=== PATIENT | female | born 1980 | race Caucasian/White ===

== ENCOUNTER 2019-02-03 12:39 | Emergency (ER) | payer SELFPAY ==
[~2019-02-03] VITALS: Ht 165.1 cm; Wt 80.7 kg
[2019-02-03 12:56] VITALS: BP 151/68
--- NOTE | 2019-02-03 13:03 | NUR ---
PT AMBULATED TO ED BED 06
--- NOTE | 2019-02-03 13:25 | NUR ---
INFLUENZA SWAB PERFORMED, SENT TO LAB.
--- NOTE | 2019-02-03 13:26 | NUR ---
38 Y/O F C/O NASAL CONGESTION FOR 3 MONTHS. PT STATES THE CONGESTION IS CONSTANT. SHE DENIES FEVER/CHILLS/N/V. PT STATES SHE TAKES OVER THE COUNTER ZYRTEC AT HOME. PT POSITIONED FOR COMFORT, BED LOWERED, X1 SIDE RAIL IN PLACE. NKA MEDHX: ANXIETY
--- NOTE | 2019-02-03 13:43 | NUR ---
DR. FLORES AT BEDSIDE EVALUATING PATIENT.
[2019-02-03 14:06] VITALS: BP 151/68
--- NOTE | 2019-02-03 14:06 | NUR ---
Patient discharged with v/s stable. Written and verbal after care instructions given and explained. Patient alert, oriented and verbalized understanding of instructions. Ambulatory with steady gait. All questions addressed prior to discharge. ID band removed. Patient advised to follow up with PMD. Rx of SUDAFED, AUGMENTIN, OXYMETAZOLINE NASAL given. Patient educated on indication of medication including possible reaction and side effects. Opportunity to ask questions provided and answered.
== END 2019-02-03 14:06 | disposition home or self-care (01) ==
LOC: MED 12:39
DX: J32.9 Chronic sinusitis, unspecified (principal)
CPT/HCPCS: 87804; 99283

== ENCOUNTER 2019-03-13 13:50 | Emergency (ER) | payer MEDICAID ==
[~2019-03-13] VITALS: Ht 12.7 cm; Wt 2.3 kg
[2019-03-13 13:52] VITALS: BP 136/85
--- NOTE | 2019-03-13 14:16 | NUR ---
38 YO FEMALE CO HEADACHE AND STUFFY NOSE FOR 4 MONTHS. HEADACHE IS 8/10. NO MED HX. NO ALLERGIES. NO ONE AT HOME SICK AT THIS TIME.
[2019-03-13 15:02] VITALS: BP 136/85
--- NOTE | 2019-03-13 15:04 | NUR ---
Patient discharged with v/s stable. Written and verbal after care instructions given and explained. Patient alert, oriented and verbalized understanding of instructions. Ambulatory with steady gait. All questions addressed prior to discharge. ID band removed. Patient advised to follow up with PMD. Rx of FLONASE, IBUPROFEN, DOXYCYCLINE given. Patient educated on indication of medication including possible reaction and side effects. Opportunity to ask questions provided and answered.
== END 2019-03-13 15:04 | disposition home or self-care (01) ==
LOC: MED 13:50
DX: J32.9 Chronic sinusitis, unspecified (principal)
CPT/HCPCS: 99283

== ENCOUNTER 2019-08-26 16:28 | Emergency (ER) | payer SELFPAY ==
[~2019-08-26] VITALS: Ht 165.1 cm; Wt 87.5 kg
[2019-08-26 16:34] VITALS: BP 143/79
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
[2019-08-26] MEDS ORDERED: NACL 0.9% 1,000 ML IV ONE (17:20)
--- NOTE | 2019-08-26 17:45 | NUR ---
LAB AT BEDSIDE
--- NOTE | 2019-08-26 17:55 | NUR ---
Altagracia lyle in [facility] - 08/26/19 at 1756 by NATAN VISUAL ACUITY: [id number]- [id number]- [id number]
[2019-08-26 17:57] LABS: BASOPHILS # (AUTO) 0.1 K/uL (0.00-0.22); BASOPHILS % (AUTO) 0.7 % (0.0-2.0); EOSINOPHILS # (AUTO) 0.2 K/uL (0-0.4); EOSINOPHILS % (AUTO) 2.7 % (0.0-4.0); HEMOGLOBIN 13.2 g/dL (12.0-16.0); LYMPHOCYTES % (AUTO) 26.1 % (20.5-51.1); MEAN CORPUSCULAR HEMOGLOBIN 27 pg (27-31); MEAN CORPUSCULAR HGB CONC 32 g/dL (33-37); MEAN CORPUSCULAR VOLUME 82.5 fL (80-94); MONOCYTES # (AUTO) 0.6 K/uL (0.8-1.0); MONOCYTES % (AUTO) 7.2 % (1.7-9.3); NEUTROPHILS # (AUTO) 4.9 K/uL (1.8-7.7); NEUTROPHILS % (AUTO) 63.3 % (42.2-75.2); PLATELET COUNT (AUTO) 364 K/uL (140-450); RED BLOOD CELL COUNT(AUTO) 4.97 MIL/uL (4.20-5.40); RED CELL DISTRIBUTION WIDTH 13.7 % (11.6-13.7); WHITE BLOOD COUNT (AUTO) 7.8 K/uL (4.8-10.8)
--- NOTE | 2019-08-26 18:02 | NUR ---
PT AMBULATED TO BATHROOM STEADY GAIT.
[2019-08-26 18:10] LABS: ALBUMIN 4.1 g/dL (3.4-5.0); ANION GAP 14.7 (8-16); CREATININE 0.8 mg/dL (0.6-1.3); POTASSIUM 3.7 mmol/L (3.5-5.1); PROTHROMBIN TIME 10.5 secs (10.8-13.4); TOTAL BILIRUBIN 0.5 mg/dL (0.0-1.0)
[2019-08-26 19:11] LABS: BARBITURATE, URINE NEGATIVE ng/ml (NEG <=200)
[2019-08-26 19:12] LABS: BENZODIAZEPINE, URINE NEGATIVE ng/mL (NEG <=200); CANNABINOID, URINE POSITIVE ng/mL (NEG <=50); COCAINE, URINE POSITIVE ng/mL (NEG <=300); OPIATE, URINE NEGATIVE ng/mL (NEG <=2000); PHENCYCLIDINE SCREEN,URINE NEGATIVE ng/mL (NEG <=25)
--- NOTE | 2019-08-26 19:20 | NUR ---
REPORT RECIEVED FROM MIGUE HOLCOMB. TRANSFER OF CARE AT THIS TIME.
--- NOTE | 2019-08-26 20:00 | NUR ---
PT RESTING COMFORTABLY IN BED. EQUAL CHEST RISE NAND FALL. SAFTEY MEASURES IMPLEMENTED. RELAXATION TECHNIQUES TAUGHT.
[2019-08-26 20:45] VITALS: BP 151/82
== END 2019-08-26 20:45 | disposition home or self-care (01) ==
LOC: MED 16:28
DX: R00.2 Palpitations (principal); F19.10 Other psychoactive substance abuse, uncomplicated; F15.10 Other stimulant abuse, uncomplicated; F41.9 Anxiety disorder, unspecified; F12.90 Cannabis use, unspecified, uncomplicated; R06.02 Shortness of breath; R03.0 Elevated blood-pressure reading, without diagnosis of hypertension
CPT/HCPCS: 36415; 71045; 80053; 80305; 81002; 81025; 84484; 85025; 85379; 85610; 85730; 93005; 99285; Q0092; J7030

== ENCOUNTER 2019-12-15 09:31 | Emergency (ER) | payer SELFPAY ==
[~2019-12-15] VITALS: Ht 165.1 cm; Wt 90.3 kg
[2019-12-15 09:36] VITALS: BP 140/92
[2019-12-15 10:01] VITALS: BP 140/92
== END 2019-12-15 09:57 | disposition home or self-care (01) ==
LOC: MED 09:31
DX: N39.0 Urinary tract infection, site not specified (principal); J32.9 Chronic sinusitis, unspecified; Z98.890 Other specified postprocedural states
CPT/HCPCS: 81002; 81025; 99283

== ENCOUNTER 2020-09-24 08:29 | Emergency (ER) | payer SELFPAY ==
--- NOTE | 2020-09-24 09:40 | NUR ---
PATIENT LEFT WITHOUT BEING TRIAGED. NO FURTHER CARE PROVIDED FOR PATIENT.
== END 2020-09-24 09:40 | disposition left against medical advice (07) ==
LOC: MED 08:29
DX: F41.9 Anxiety disorder, unspecified (principal); Z53.21 Procedure and treatment not carried out due to patient leaving prior to being seen by health care provider

== ENCOUNTER 2021-04-28 03:53 | Emergency (ER) | payer SELFPAY ==
[~2021-04-28] VITALS: Ht 165.1 cm; Wt 95.3 kg
[2021-04-28 03:53] VITALS: BP 131/71
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
--- NOTE | 2021-04-28 03:55 | NUR ---
BIBA TAKEN TO BED #2
[2021-04-28] MEDS ORDERED: KETOROLAC 60 MG/2 ML VIAL IM ONE (04:45)
[2021-04-28] MEDS ORDERED: ACET-8386 PO (05:18)
[2021-04-28 06:35] VITALS: BP 131/71
--- NOTE | 2021-04-28 06:37 | NUR ---
Patient discharged with v/s stable. Written and verbal after care instructions given and explained. Patient alert, oriented and verbalized understanding of instructions. Ambulatory with steady gait. All questions addressed prior to discharge. ID band removed. Patient advised to follow up with PMD. Rx of Hydrocodone/Acetaminophen given. Patient educated on indication of medication including possible reaction and side effects. Opportunity to ask questions provided and answered. 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
== END 2021-04-28 06:33 | disposition home or self-care (01) ==
LOC: MED 03:53
DX: M54.6 Pain in thoracic spine (principal); Z98.890 Other specified postprocedural states; V89.2XXA Person injured in unspecified motor-vehicle accident, traffic, initial encounter; Y93.89 Activity, other specified; Y92.89 Other specified places as the place of occurrence of the external cause; Y99.8 Other external cause status
CPT/HCPCS: 96372; 99283; J1885

== ENCOUNTER 2021-06-04 19:21 | Emergency (ER) | payer SELFPAY ==
[~2021-06-04] VITALS: Ht 165.1 cm; Wt 99.8 kg
[~2021-06-04 19:21] MED LIST: ACET-8386 PO
--- NOTE | 2021-06-04 19:35 | NUR ---
CALLED TO TRIAGE, NO ANSWER
[2021-06-04 19:51] VITALS: BP 149/70
[2021-06-04 20:36] LABS: BASOPHILS % (AUTO) 0.4 % (0.0-2.0); EOSINOPHILS # (AUTO) 0.3 K/uL (0-0.4); EOSINOPHILS % (AUTO) 2.6 % (0.0-4.0); HEMATOCRIT 38.1 % (36-48); HEMOGLOBIN 12.2 g/dL (12.0-16.0); LYMPHOCYTES # (AUTO) 3.5 K/uL (2.5-16.5); MEAN CORPUSCULAR HEMOGLOBIN 25 pg (27-31); MEAN CORPUSCULAR HGB CONC 32 g/dL (33-37); MEAN CORPUSCULAR VOLUME 78.5 fL (80-94); MONOCYTES # (AUTO) 0.6 K/uL (0.8-1.0); NEUTROPHILS # (AUTO) 6.1 K/uL (1.8-7.7); PLATELET COUNT (AUTO) 507 K/uL (140-450); RED BLOOD CELL COUNT(AUTO) 4.85 MIL/uL (4.20-5.40); RED CELL DISTRIBUTION WIDTH 15.5 % (11.6-13.7); WHITE BLOOD COUNT (AUTO) 10.5 K/uL (4.8-10.8)
--- NOTE | 2021-06-04 20:52 | NUR ---
PT AMBULATED TO BED 3
[2021-06-04] MEDS ORDERED: KETOROLAC 60 MG/2 ML VIAL IM ONE (21:15)
--- NOTE | 2021-06-04 21:20 | NUR ---
PT AMBULATED TO BATHROOM W STEADY GAIT.
[2021-06-04 21:51] LABS: ALBUMIN 3.9 g/dL (3.4-5.0); ANION GAP 14.4 (8-16); CARBON DIOXIDE 27.8 mmol/L (21-32); CREATININE 0.8 mg/dL (0.6-1.3); POTASSIUM 3.2 mmol/L (3.5-5.1); TOTAL BILIRUBIN 0.2 mg/dL (0.0-1.0)
--- NOTE | 2021-06-04 22:00 | NUR ---
PATIENT PRESENTS TO ED WITH TINGLING SENSATION ON HER SCALP. PT STATES SHE IS EXPERIENCING THIS TINGLING X 3 DAYS. 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 DENIES N/V/D; SKIN IS PINK/WARM/DRY; HR EVEN AND REGULAR; PT DENIES ANY FEVER, CP, SOB, OR COUGH AT THIS TIME; PATIENT STATES PAIN OF 0/10 AT THIS TIME; VSS; PATIENT POSITIONED FOR COMFORT; HOB ELEVATED; BEDRAILS UP X2; BED DOWN. ER MD MADE AWARE OF PT STATUS. PMH: NONE MEDS: NONE
--- NOTE | 2021-06-04 22:03 | NUR ---
Patient appears to be resting comfortably in bed. Vital Signs within normal limits. Respirations even and unlabored. Not currently experiencing any pain.
[2021-06-04] MEDS ORDERED: ATA25 PO (22:30)
[2021-06-04 22:53] VITALS: BP 149/70
--- NOTE | 2021-06-04 22:53 | NUR ---
Patient discharged with v/s stable. Written and verbal after care instructions given and explained. Patient alert, oriented and verbalized understanding of instructions. Ambulatory with steady gait. All questions addressed prior to discharge. ID band removed. Patient advised to follow up with PMD. Rx of ATARAX HCL given. Patient educated on indication of medication including possible reaction and side effects. Opportunity to ask questions provided and answered.
== END 2021-06-04 22:53 | disposition home or self-care (01) ==
LOC: MED 19:21
DX: F41.9 Anxiety disorder, unspecified (principal)
CPT/HCPCS: 36415; 80053; 81002; 81025; 85025; 96372; 99283; J1885

== ENCOUNTER 2022-04-30 08:03 | Emergency (ER) | payer SELFPAY ==
[~2022-04-30] VITALS: Ht 165.1 cm; Wt 110.7 kg
[~2022-04-30 08:03] MED LIST changes: -ACET-8386 PO; +ACET-8905 PO; +ATA25 PO
[2022-04-30 08:08] VITALS: BP 148/100
--- NOTE | 2022-04-30 08:19 | NUR ---
PATIENT PRESENTS TO ED WITH DRY COUGH FOR 2 DAYS . PT STATES WHEN SHE HAS COUGH EXACERBATION SHE EXHIBITS PAIN TO CHEST, BACK AND HEAD. DENIES N/V/D; SKIN IS PINK/WARM/DRY; AAOX4 WITH EVEN AND STEADY GAIT; LUNGS CLEAR BL; HR EVEN AND REGULAR; PT DENIES ANY FEVER, SOB, AT THIS TIME; PATIENT STATES PAIN OF 7/10 AT THIS TIME; VSS; ER MD MADE AWARE OF PT STATUS.
--- NOTE | 2022-04-30 08:19 | NUR ---
PT SWABBED FOR FLU AND COVID
[2022-04-30 10:07] VITALS: BP 148/100
--- NOTE | 2022-04-30 10:07 | NUR ---
PT LEFT WITHOUT DX PAPER AND WORK NOTE. WORK NOTE STATES ABLE TO RETURN TO WORK FOR 04/30/22
== END 2022-04-30 10:07 | disposition home or self-care (01) ==
LOC: MED 08:03
DX: R05.9 Cough, unspecified (principal); Z20.822 Contact with and (suspected) exposure to COVID-19; Z79.899 Other long term (current) drug therapy
CPT/HCPCS: 99283

== ENCOUNTER 2022-11-18 13:29 | Emergency (ER) | payer MEDICAID ==
[~2022-11-18] VITALS: Ht 157.5 cm; Wt 85.7 kg
[2022-11-18 14:15] VITALS: BP 142/80; PULSE 78; RESP 17; TEMP 97.6; O2SAT 98
[2022-11-18 15:22] LABS: BASOPHILS # (AUTO) 0.1 K/uL (0.00-0.22); BASOPHILS % (AUTO) 0.7 % (0.0-2.0); EOSINOPHILS # (AUTO) 0.3 K/uL (0-0.4); EOSINOPHILS % (AUTO) 2.4 % (0.0-4.0); HEMATOCRIT 38.8 % (36-48); HEMOGLOBIN 12.3 g/dL (12.0-16.0); LYMPHOCYTES # (AUTO) 3.6 K/uL (2.5-16.5); LYMPHOCYTES % (AUTO) 28.3 % (20.5-51.1); MEAN CORPUSCULAR HEMOGLOBIN 25 pg (27-31); MEAN CORPUSCULAR HGB CONC 32 g/dL (33-37); MEAN CORPUSCULAR VOLUME 77.2 fL (80-94); MONOCYTES # (AUTO) 0.8 K/uL (0.8-1.0); MONOCYTES % (AUTO) 5.9 % (1.7-9.3); NEUTROPHILS % (AUTO) 62.7 % (42.2-75.2); PLATELET COUNT (AUTO) 496 K/uL (140-450); RED BLOOD CELL COUNT(AUTO) 5.03 MIL/uL (4.20-5.40); RED CELL DISTRIBUTION WIDTH 15.5 % (11.6-13.7); WHITE BLOOD COUNT (AUTO) 12.8 K/uL (4.8-10.8)
[2022-11-18 15:54] LABS: ALBUMIN 3.8 g/dL (3.4-5.0); ANION GAP 14.7 (8-16); CALCIUM 9.4 mg/dL (8.5-10.1); CARBON DIOXIDE 27.4 mmol/L (21-32); CREATININE 0.8 mg/dL (0.6-1.3); POTASSIUM 4.1 mmol/L (3.5-5.1); TOTAL BILIRUBIN 0.3 mg/dL (0.0-1.0); TOTAL PROTEIN, SERUM 8.3 g/dL (6.4-8.2)
== END 2022-11-18 16:49 | disposition home or self-care (01) ==
LOC: MED 13:29
DX: I10 Essential (primary) hypertension (principal); R60.9 Edema, unspecified; R20.2 Paresthesia of skin; Z79.899 Other long term (current) drug therapy
CPT/HCPCS: 36415; 80053; 84443; 85025; 99283

== ENCOUNTER 2023-06-24 12:32 | Emergency (ER) | payer MEDICAID ==
[~2023-06-24] VITALS: Ht 165.1 cm; Wt 109.8 kg
[2023-06-24 12:35] VITALS: BP 125/91; PULSE 87; RESP 18; TEMP 97.9; O2SAT 100
[2023-06-24] MEDS: DICYCLOMINE HCL LIQUID 10 MG/5 ML UDC PO ONE (14:40)
[2023-06-24] MEDS: LIDOCAINE 5% 1 EA PATCH TP ONE (14:43)
[2023-06-24] MEDS: ALUMINUM HYD/MAG/SIMETHICONE 30 ML UDC PO ONE (14:47)
[2023-06-24] MEDS: KETOROLAC 30 MG/ML VIAL IM ONE (14:47)
[2023-06-24] MEDS ORDERED: OMEP20EC11 PO (15:24)
[2023-06-24] MEDS ORDERED: DICL20GE TP (15:24)
== END 2023-06-24 15:38 | disposition home or self-care (01) ==
LOC: MED 12:32
DX: K29.70 Gastritis, unspecified, without bleeding (principal); Z79.1 Long term (current) use of non-steroidal anti-inflammatories (NSAID); Z79.899 Other long term (current) drug therapy
CPT/HCPCS: 81025; 96372; 99284; J1885

== ENCOUNTER 2023-07-15 17:14 | Emergency (ER) | payer MEDICAID ==
[~2023-07-15] VITALS: Ht 165.1 cm; Wt 108.9 kg
[~2023-07-15 17:14] MED LIST changes: +DICL20GE TP; +OMEP20EC11 PO
[2023-07-15 17:21] VITALS: BP 135/90; PULSE 83; RESP 18; TEMP 98.8; O2SAT 97
[2023-07-15 18:54] LABS: APPEARANCE,URINE CLEAR (CLEAR); COLOR,URINE YELLOW (YELLOW); LEUKOCYTE ESTERASE ,URINE NEGATIVE (NEGATIVE); NITRITE, URINE POSITIVE (NEGATIVE)
[2023-07-15 18:55] LABS: FLU A ANTIGEN negative (NEGATIVE); FLU B ANTIGEN negative (NEGATIVE)
[2023-07-15 18:55] LABS: BLOOD, URINE TRACE (NEGATIVE); PROTEIN,URINE NEGATIVE (NEGATIVE); UGLUCOSE NEGATIVE (NEGATIVE)
[2023-07-15 18:56] LABS: BILIRUBIN,URINE NEGATIVE (NEGATIVE); UROBILINOGEN,URINE 0.2 EU/dL (0.2 - 1)
[2023-07-15 19:21] LABS: RBC,URINE 0-5 /HPF (0-5)
[2023-07-15 19:22] LABS: BACTERIA,URINE >30 (MANY) /HPF (None Seen); MUCUS,URINE None Seen /LPF (None Seen); SQUAMOUS EPITHELIAL CELL,UR 0-3 (FEW) /LPF (0-3 (FEW)); TRICHOMONAS,URINE None Seen /HPF (None Seen); WHITE BLOOD CELL CASTS,URINE None Seen /LPF (None Seen); YEAST,URINE None Seen /HPF (None Seen)
[2023-07-15 19:32] VITALS: TEMP 98.8
[2023-07-15 19:32] LABS: BASOPHILS # (AUTO) 0.1 K/uL (0.00-0.22); BASOPHILS % (AUTO) 0.7 % (0.0-2.0); EOSINOPHILS # (AUTO) 0.3 K/uL (0-0.4); EOSINOPHILS % (AUTO) 3.8 % (0.0-4.0); HEMATOCRIT 39.2 % (36-48); HEMOGLOBIN 12.7 g/dL (12.0-16.0); LYMPHOCYTES # (AUTO) 3.2 K/uL (2.5-16.5); LYMPHOCYTES % (AUTO) 43.2 % (20.5-51.1); MEAN CORPUSCULAR HEMOGLOBIN 26 pg (27-31); MEAN CORPUSCULAR HGB CONC 33 g/dL (33-37); MEAN CORPUSCULAR VOLUME 78.9 fL (80-94); MONOCYTES # (AUTO) 0.6 K/uL (0.8-1.0); MONOCYTES % (AUTO) 8.1 % (1.7-9.3); NEUTROPHILS # (AUTO) 3.3 K/uL (1.8-7.7); NEUTROPHILS % (AUTO) 44.2 % (42.2-75.2); PLATELET COUNT (AUTO) 437 K/uL (140-450); RED BLOOD CELL COUNT(AUTO) 4.96 MIL/uL (4.20-5.40); RED CELL DISTRIBUTION WIDTH 14.8 % (11.6-13.7); WHITE BLOOD COUNT (AUTO) 7.4 K/uL (4.8-10.8)
[2023-07-15 19:48] LABS: ANION GAP 11.9 (8-16); CALCIUM 9.1 mg/dL (8.5-10.1); CARBON DIOXIDE 29.4 mmol/L (21-32); CREATININE 0.7 mg/dL (0.6-1.3); POTASSIUM 3.3 mmol/L (3.5-5.1)
[2023-07-15] MEDS: KETOROLAC 60 MG/2 ML VIAL IM ONE (20:13)
[2023-07-15] MEDS ORDERED: CIPR500T4 PO (20:42)
[2023-07-15] MEDS ORDERED: ONDA8TAB87 PO (20:42)
[2023-07-15 20:52] VITALS: BP 131/88; PULSE 78; RESP 16; O2SAT 98
== END 2023-07-15 20:50 | disposition home or self-care (01) ==
LOC: MED 17:14
DX: U07.1 COVID-19 (principal); N39.0 Urinary tract infection, site not specified; R20.2 Paresthesia of skin; Z98.890 Other specified postprocedural states; Z79.1 Long term (current) use of non-steroidal anti-inflammatories (NSAID); Z79.899 Other long term (current) drug therapy
CPT/HCPCS: 36415; 80048; 81001; 81025; 85025; 87086; 87186; 87426; 87804; 96372; 99283; J1885

== ENCOUNTER 2023-10-05 17:40 | Emergency (ER) | payer SELFPAY ==
[~2023-10-05] VITALS: Ht 165.1 cm; Wt 109.1 kg
[~2023-10-05 17:40] MED LIST changes: +CIPR500T4 PO; +ONDA8TAB87 PO
[2023-10-05 17:45] VITALS: BP 145/83; PULSE 74; RESP 19; TEMP 98.2; O2SAT 98
[2023-10-05 18:50] LABS: BASOPHILS % (AUTO) 0.5 % (0.0-2.0); EOSINOPHILS # (AUTO) 0.4 K/uL (0-0.4); EOSINOPHILS % (AUTO) 4.2 % (0.0-4.0); HEMATOCRIT 40.6 % (36-48); HEMOGLOBIN 13.1 g/dL (12.0-16.0); LYMPHOCYTES # (AUTO) 3.4 K/uL (2.5-16.5); LYMPHOCYTES % (AUTO) 39.1 % (20.5-51.1); MEAN CORPUSCULAR HEMOGLOBIN 26 pg (27-31); MEAN CORPUSCULAR HGB CONC 32 g/dL (33-37); MONOCYTES # (AUTO) 0.8 K/uL (0.8-1.0); MONOCYTES % (AUTO) 8.9 % (1.7-9.3); NEUTROPHILS # (AUTO) 4.2 K/uL (1.8-7.7); NEUTROPHILS % (AUTO) 47.3 % (42.2-75.2); PLATELET COUNT (AUTO) 409 K/uL (140-450); RED BLOOD CELL COUNT(AUTO) 5.01 MIL/uL (4.20-5.40); RED CELL DISTRIBUTION WIDTH 15.2 % (11.6-13.7); WHITE BLOOD COUNT (AUTO) 8.8 K/uL (4.8-10.8)
[2023-10-05 19:00] LABS: ANION GAP 14.1 (8-16); CARBON DIOXIDE 27.9 mmol/L (21-32); CREATININE 0.7 mg/dL (0.6-1.3)
[2023-10-05 19:05] LABS: APPEARANCE,URINE HAZY (CLEAR); BILIRUBIN,URINE NEGATIVE (NEGATIVE); BLOOD, URINE NEGATIVE (NEGATIVE); COLOR,URINE YELLOW (YELLOW); LEUKOCYTE ESTERASE ,URINE NEGATIVE (NEGATIVE); NITRITE, URINE POSITIVE (NEGATIVE); PROTEIN,URINE NEGATIVE (NEGATIVE); UGLUCOSE NEGATIVE (NEGATIVE); UROBILINOGEN,URINE 0.2 EU/dL (0.2 - 1)
[2023-10-05 19:05] LABS: ALANINE AMINOTRANSFERASE 41 U/L (12-78); ALBUMIN 3.9 g/dL (3.4-5.0); ALKALINE PHOSPHATASE 80 U/L (50-136); ASPARTATE AMINOTRANSFERASE 27 U/L (15-37); BILIRUBIN,DIRECT 0.1 mg/dL (0.0-0.3); TOTAL BILIRUBIN 0.3 mg/dL (0.0-1.0); TOTAL PROTEIN, SERUM 8.1 g/dL (6.4-8.2)
[2023-10-05 19:09] LABS: BACTERIA,URINE 1+ /HPF (None Seen); MUCUS,URINE None Seen /LPF (None Seen); RBC,URINE 0-5 /HPF (0-5); SQUAMOUS EPITHELIAL CELL,UR 0-3 (FEW) /LPF (0-3 (FEW)); WBC,URINE 0-5 /HPF (0-5)
[2023-10-05 19:15] LABS: AMPHETAMINE, URINE NEGATIVE ng/ml (NEG <=1000); BARBITURATE, URINE NEGATIVE ng/ml (NEG <=200); BENZODIAZEPINE, URINE NEGATIVE ng/mL (NEG <=200); CANNABINOID, URINE NEGATIVE ng/mL (NEG <=50); COCAINE, URINE NEGATIVE ng/mL (NEG <=300); OPIATE, URINE NEGATIVE ng/mL (NEG <=2000); PHENCYCLIDINE SCREEN,URINE NEGATIVE ng/mL (NEG <=25)
== END 2023-10-05 20:45 | disposition home or self-care (01) ==
LOC: MED 17:40
DX: R60.9 Edema, unspecified (principal); R07.89 Other chest pain; R03.0 Elevated blood-pressure reading, without diagnosis of hypertension; Z79.1 Long term (current) use of non-steroidal anti-inflammatories (NSAID); Z79.899 Other long term (current) drug therapy
CPT/HCPCS: 36415; 71045; 80048; 80076; 80305; 81001; 81025; 82948; 83880; 84484; 85025; 85379; 93005; 99285